=== PATIENT | male | born 1955 | race Hispanic/Latino ===

== ENCOUNTER 2018-10-22 17:45 | Emergency (ER) | payer OTHER, BC ==
--- NOTE | 2018-10-22 18:41 | Emergency Department Report ---
Chief Complaint: Extremity Injury, Upper Stated Complaint: CUT FINGER Time Seen by Provider: 10/22/18 18:39 - HPI History of Present Illness: pt states he smashed his right pinky in between a metal door handle and a door unsure of last tetanus pt is able to move the digit states there was bleeding, controlled with dressing MSE screening note: Focused history performed. Due to findings the following was ordered: XR of the right pinky ED Disposition for MSE Condition: Stable
[2018-10-22] MEDS ORDERED: BOOSTRIX IM ONE ×2 (18:42→23:36)
--- NOTE | 2018-10-22 19:52 | XRay Report ---
PROCEDURE: XR FINGER(S) 2+V RT TECHNIQUE: Right fifth finger 3 views HISTORY: right pinky injury COMPARISONS: FINDINGS: There is soft tissue defect tip of the fifth digit. No radiopaque foreign body is identified. No frac ture seen. Joint spaces are within normal limits IMPRESSION: Soft tissue laceration tip of the fifth digit No fracture or radiopaque foreign body identified. This document is electronically signed by Rodriguez Marrufo MD., October 22 2018 07:50:55 PM ET
--- NOTE | 2018-10-22 23:38 | Emergency Department Report ---
ED Upper Extremity Inj HPI - General Chief Complaint: Extremity Injury, Upper Stated Complaint: CUT FINGER Time Seen by Provider: 10/22/18 18:39 Source: patient Mode of arrival: Ambulatory Limitations: No Limitations - History of Present Illness Initial Comments: Patient is 63 years old male presented with a crush injury to the tip of the right fifth finger that happened around 4:30 AM approximately 20 hours ago. Patient denied any other injury. Patient stated that last tetanus shot was 30 years ago. Complaint: Injury to:: right, finger Time: 04:30 Other Extremity Injury: Fingers: Right - Related Data Allergies Allergy/AdvReac Type Severity Reaction Status Date / Time Penicillins Allergy Unknown Verified 10/22/18 18:41 ED Review of Systems ROS: Stated complaint: CUT FINGER Other details as noted in HPI Comment: All other systems reviewed and negative Respiratory: denies: cough Cardiovascular: denies: chest pain ED Past Medical Hx - Past Medical History Previous Medical History?: No - Surgical History Past Surgical History?: Yes Additional Surgical History: lower back, left elbow - Social History Smoking Status: Current Every Day Smoker Substance Use Type: Alcohol ED Physical Exam - General Limitations: No Limitations General appearance: alert, in no apparent distress - Head Head exam: Present: atraumatic - ENT ENT exam: Present: normal exam - Neck Neck exam: Present: normal inspection. Absent: tenderness - Respiratory Respiratory exam: Present: normal lung sounds bilaterally - Cardiovascular Cardiovascular Exam: Present: regular rate, normal heart sounds - GI/Abdominal GI/Abdominal exam: Present: soft - Expanded Upper Extremity Exam Right Hand Wrist exam: Present: other (right fifth finger tip with crush injury, no bleeding.) ED Course Vital Signs 10/22/18 18:39 Temperature 97.4 F L Pulse Rate 85 Respiratory 18 Rate Blood Pressure 116/72 O2 Sat by Pulse 100 Oximetry ED Medical Decision Making - Radiology Data Radiology results: report reviewed Right hand x-rays negative for acute finding. - Medical Decision Making Patient has a laceration that present for more than 20 hours. Patient now suture because of possibility of infection. Patient given tetanus shot and started on antibiotic and advised to follow-up with his primary care physician in the next 2-3 days. Critical care attestation.: If time is entered above; I have spent that time in minutes in the direct care of this critically ill patient, excluding procedure time. ED Disposition Clinical Impression: Injury, finger Disposition: DC-01 TO HOME OR SELFCARE Is pt being admited?: No Condition: Stable Instructions: Finger Laceration (ED) Referrals: LEE MCLAUGHLIN MD [Primary Care Provider] - 3-5 Days Forms: Work/School Release Form(ED)
[2018-10-23 00:05] VITALS: BP 118/73
== END 2018-10-23 00:05 | disposition home or self-care (01) ==
LOC: ED 17:45
DX: S67.196A Crushing injury of right little finger, initial encounter (principal); F17.200 Nicotine dependence, unspecified, uncomplicated; Z88.0 Allergy status to penicillin; W23.0XXA Caught, crushed, jammed, or pinched between moving objects, initial encounter; Y93.89 Activity, other specified; Y92.89 Other specified places as the place of occurrence of the external cause; Y99.8 Other external cause status
CPT/HCPCS: 90471; 90715; 99283